=== PATIENT | male | born 1955 | race Native Hawaiian/Other Pacific Islander ===

== ENCOUNTER 2019-03-12 11:30 | Inpatient (IN) | payer MEDICAID, OTHER ==
[~2019-03-12] VITALS: Ht 185.4 cm; Wt 109.2 kg
[~2019-03-12 11:30] MED LIST: NOCURR
[2019-03-12 12:44] LABS: BASOPHILS % (AUTO) 0.6 % (0.0-2.0); EOSINOPHILS % (AUTO) 8.8 % (1.0-6.0); HEMATOCRIT 46.9 % (41-53); HEMOGLOBIN 15.7 g/dL (13.5-17.5); LYMPHOCYTES # (AUTO) 1.9 K/uL (1.0-4.8); LYMPHOCYTES % (AUTO) 31.5 % (22.0-44.0); MEAN CORPUSCULAR HEMOGLOBIN 31.6 pg (26.0-34.0); MEAN CORPUSCULAR HGB CONC 33.5 G/dL (31.0-37.0); MEAN CORPUSCULAR VOLUME 94 fL (80-100); MONOCYTES # (AUTO) 0.5 K/uL (0.1-1.0); MONOCYTES % (AUTO) 8.2 % (2.0-9.0); NEUTROPHILS % (AUTO) 50.9 % (40.0-70.0); PLATELET COUNT (AUTO) 314 K/uL (150-450); RED BLOOD CELL COUNT(AUTO) 4.97 MIL/uL (4.50-5.90); RED CELL DISTRIBUTION WIDTH 13.5 % (11.5-14.5)
[2019-03-12 12:59] LABS: ANION GAP 8 mmol/L (8-16); CALCIUM, TOTAL 8.9 mg/dL (8.8-10.5); CARBON DIOXIDE 26 mmol/L (22-29); CHLORIDE 105 mmol/L (98-107); GLOMERULAR FILTR. RATE CALC > 60 mL/min (>60); GLUCOSE,RANDOM 97 mg/dL (70-110); POTASSIUM 4.4 mmol/L (3.5-5.1); SODIUM SERUM 139 mmol/L (136-145); UREA NITROGEN, BLOOD 14 mg/dL (7-18)
[2019-03-12 13:05] LABS: ALANINE AMINOTRANSFERASE 24 U/L (12-78); ALBUMIN 3.7 g/dL (3.4-5.0); ALKALINE PHOSPHATASE 53 U/L (46-116); ASPARTATE AMINOTRANSFERASE 19 U/L (15-37); BILIRUBIN,TOTAL 0.5 mg/dL (0.1-1.0); TOTAL PROTEIN, SERUM 7.9 g/dL (6.4-8.2)
[2019-03-12] MEDS ORDERED: IOVERSOL 350 MG/ML 150 ML VIAL ONE (14:36)
[2019-03-12] MEDS ORDERED: IOVERSOL 320 MG/ML 100 ML VIAL ONE (14:44)
[2019-03-12] MEDS ORDERED: 0.9% SODIUM CHLORIDE 10 ML SYRINGE IVP PRN (16:00)
[2019-03-12] MEDS ORDERED: ACETAMINOPHEN 325 MG TABLET PO PRN ×2 (16:00→16:30)
[2019-03-12] MEDS ORDERED: ONDANSETRON HCL 4 MG/2 ML VIAL IVP PRN ×2 (16:00→16:30)
[2019-03-12] MEDS ORDERED: IOVERSOL 350 MG/ML 100 ML VIAL ONE (16:14)
[2019-03-12] MEDS ORDERED: MORPHINE SULFATE 2 MG/ML SYRINGE IVP PRN (16:30)
[2019-03-12] MEDS ORDERED: ZOLPIDEM TARTRATE 5 MG TABLET PO PRN (16:30)
[2019-03-12] MEDS ORDERED: HYDROCODONE/ACETAMINOPHEN 5-325 MG TABLET PO PRN (16:30)
[2019-03-12] MEDS ORDERED: MAGNESIUM HYDROXIDE SUSPENSION 30 ML UDCUP PO PRN (16:30)
[2019-03-12] MEDS ORDERED: BISACODYL 10 MG RECTAL RECTAL SUPPOSITORY PR PRN (16:30)
[2019-03-12 21:34] VITALS: BP 154/78
[2019-03-13 00:02] VITALS: BP 119/73
[2019-03-13] MEDS ORDERED: INFLUENZA VIRUS VACCINE QVS 2019-20 (3YR+)/PF 60 MCG/0.5 ML SYRINGE IM ONE (00:15)
[2019-03-13] MEDS: HEPARIN SODIUM,PORCINE 5,000 UNITS/ML VIAL SQ SCH ×3 (00:22→15:16)
[2019-03-13] MEDS: NITROGLYCERIN 2% (1 GM=INCH) PACKET TP SCH ×3 (00:22→15:17)
[2019-03-13] MEDS: DOCUSATE SODIUM 100 MG CAPSULE PO SCH ×2 (00:22→08:37)
[2019-03-13 04:37] VITALS: BP 100/70
[2019-03-13 05:43] LABS: AMPHET/METH SCREEN,URINE NEGATIVE (NEGATIVE); BARBITURATE SCREEN, URINE NEGATIVE (NEGATIVE); BENZODIAZEPINES SCREEN,URINE NEGATIVE (NEGATIVE); CANNABINOID SCREEN,URINE NEGATIVE (NEGATIVE); COCAINE SCREEN,URINE NEGATIVE (NEGATIVE); METHADONE SCREEN, URINE NEGATIVE (NEGATIVE); OPIATE SCREEN,URINE NEGATIVE (NEGATIVE)
[2019-03-13 05:46] LABS: PHENCYCLIDINE SCREEN,URINE NEGATIVE (NEGATIVE)
[2019-03-13 07:13] LABS: BASOPHILS % (AUTO) 0.6 % (0.0-2.0); EOSINOPHILS % (AUTO) 7.5 % (1.0-6.0); HEMATOCRIT 44.4 % (41-53); HEMOGLOBIN 15.1 g/dL (13.5-17.5); LYMPHOCYTES # (AUTO) 2.1 K/uL (1.0-4.8); LYMPHOCYTES % (AUTO) 29.2 % (22.0-44.0); MEAN CORPUSCULAR VOLUME 94 fL (80-100); MONOCYTES # (AUTO) 0.6 K/uL (0.1-1.0); NEUTROPHILS % (AUTO) 54.7 % (40.0-70.0); PLATELET COUNT (AUTO) 315 K/uL (150-450); RED BLOOD CELL COUNT(AUTO) 4.72 MIL/uL (4.50-5.90); RED CELL DISTRIBUTION WIDTH 13.3 % (11.5-14.5)
[2019-03-13 07:37] VITALS: BP 105/43
[2019-03-13 07:57] LABS: ANION GAP 7 mmol/L (8-16); CALCIUM, TOTAL 8.7 mg/dL (8.8-10.5); CARBON DIOXIDE 27 mmol/L (22-29); CHLORIDE 104 mmol/L (98-107); CHOLESTEROL 237 mg/dL (131-200); GLOMERULAR FILTR. RATE CALC > 60 mL/min (>60); GLUCOSE,RANDOM 98 mg/dL (70-110); HDL CHOLESTEROL 34 mg/dL (40-60); LDL CHOL (CALC.) 177 mg/dL (0-130); SODIUM SERUM 138 mmol/L (136-145); TRIGLYCERIDES 129 mg/dL (15-150); UREA NITROGEN, BLOOD 14 mg/dL (7-18)
[2019-03-13] MEDS ORDERED: ASPIRIN 81 MG CHEWABLE TABLET PO SCH (09:00)
[2019-03-13] MEDS ORDERED: PANTOPRAZOLE SODIUM 40 MG DR TABLET PO SCH (09:00)
[2019-03-13 11:25] VITALS: BP 128/70
[2019-03-13 15:11] VITALS: BP 114/58
== END 2019-03-13 16:30 | disposition home or self-care (01) | DRG 203 ==
LOC: EMS 11:32 → 5S 16:44
PROVIDERS: ADMIT Internal Medicine; ATTEND Internal Medicine
DX: M94.0 Chondrocostal junction syndrome [Tietze] (principal); J45.909 Unspecified asthma, uncomplicated; R55 Syncope and collapse; Z87.891 Personal history of nicotine dependence; Z23 Encounter for immunization
CPT/HCPCS: 70496; 71275; 80307; 90686; 93005; 93306; J1644

== ENCOUNTER 2019-06-03 11:26 | Emergency (ER) | payer OTHER ==
[~2019-06-03] VITALS: Ht 180.3 cm; Wt 104.5 kg
[2019-06-03 12:20] VITALS: BP 144/99
== END 2019-06-03 12:58 | disposition home or self-care (01) ==
LOC: EMS 11:27
DX: L30.9 Dermatitis, unspecified (principal); J45.909 Unspecified asthma, uncomplicated; Z87.891 Personal history of nicotine dependence

== ENCOUNTER 2019-11-09 11:39 | Emergency (ER) | payer OTHER ==
[~2019-11-09] VITALS: Ht 182.9 cm; Wt 100.0 kg
[2019-11-09 11:42] VITALS: BP 129/80
== END 2019-11-09 12:27 | disposition home or self-care (01) ==
LOC: EMS 11:43
DX: K08.89 Other specified disorders of teeth and supporting structures (principal); L30.9 Dermatitis, unspecified; J45.909 Unspecified asthma, uncomplicated; Z87.891 Personal history of nicotine dependence

== ENCOUNTER 2019-11-30 12:53 | Emergency (ER) | payer OTHER ==
[~2019-11-30] VITALS: Ht 182.9 cm; Wt 100.0 kg
[2019-11-30] MEDS ORDERED: MAGNESIUM CITRATE 300 ML ORAL SOLUTION PO ONE (14:30)
[2019-11-30] MEDS ORDERED: TraMADol HCL 50 MG TABLET PO ONE (14:30)
[2019-11-30 14:44] VITALS: BP 143/82
== END 2019-11-30 14:53 | disposition home or self-care (01) ==
LOC: EMS 12:58
DX: M13.862 Other specified arthritis, left knee (principal); M13.861 Other specified arthritis, right knee; R10.84 Generalized abdominal pain; J45.909 Unspecified asthma, uncomplicated; Z87.891 Personal history of nicotine dependence

== ENCOUNTER 2019-12-11 12:16 | Emergency (ER) | payer OTHER ==
[~2019-12-11] VITALS: Ht 175.3 cm; Wt 100.0 kg
[2019-12-11 12:18] VITALS: BP 143/82
== END 2019-12-11 12:57 | disposition home or self-care (01) ==
LOC: EMS 12:16
DX: L25.9 Unspecified contact dermatitis, unspecified cause (principal); Z87.891 Personal history of nicotine dependence
CPT/HCPCS: 99283; Z7502

== ENCOUNTER 2019-12-17 13:32 | Emergency (ER) | payer OTHER ==
[~2019-12-17] VITALS: Ht 182.9 cm; Wt 90.9 kg
[2019-12-17] MEDS ORDERED: NAPR-1193 PO (13:40)
[2019-12-17 13:42] VITALS: BP 128/69
[2019-12-17] MEDS ORDERED: NAPROXEN 250 MG TABLET PO ONE (14:00)
== END 2019-12-17 14:24 | disposition home or self-care (01) ==
LOC: EMS 13:36
DX: M13.862 Other specified arthritis, left knee (principal); M13.861 Other specified arthritis, right knee; J45.909 Unspecified asthma, uncomplicated; Z87.891 Personal history of nicotine dependence
CPT/HCPCS: Z7502; Z7610

== ENCOUNTER 2020-04-22 12:10 | Emergency (ER) | payer OTHER ==
[~2020-04-22] VITALS: Ht 177.8 cm; Wt 97.7 kg
[~2020-04-22 12:10] MED LIST changes: +NAPR-1193 PO; -NOCURR
[2020-04-22 14:27] VITALS: BP 142/76
== END 2020-04-22 14:34 | disposition home or self-care (01) ==
LOC: EMS 12:11
DX: L30.9 Dermatitis, unspecified (principal); J45.909 Unspecified asthma, uncomplicated; I20.9 Angina pectoris, unspecified

== ENCOUNTER 2020-06-21 07:14 | Emergency (ER) | payer OTHER ==
[~2020-06-21] VITALS: Ht 182.9 cm; Wt 90.9 kg
[2020-06-21] MEDS ORDERED: GuaiFENesin/D-METHORPHAN [SUGAR-FREE] 200-20MG/10 ML SYRUP UDCUP PO ONE (08:00)
[2020-06-21] MEDS ORDERED: ACETAMINOPHEN 500 MG TABLET PO ONE (08:00)
[2020-06-21 09:36] LABS: COVID AG,FIA SOURCE NASOPHARYNGEAL
[2020-06-21 10:09] LABS: INFLUENZA TYPE A NEGATIVE FOR TYPE A (NEGATIVE); INFLUENZA TYPE B NEGATIVE FOR TYPE B (NEGATIVE)
[2020-06-21 10:25] LABS: BASOPHILS % (AUTO) 0.6 % (0.0-2.0); EOSINOPHILS % (AUTO) 1.7 % (1.0-6.0); HEMATOCRIT 44.3 % (41-53); LYMPHOCYTES # (AUTO) 1.6 K/uL (1.0-4.8); LYMPHOCYTES % (AUTO) 14.8 % (22.0-44.0); MEAN CORPUSCULAR HEMOGLOBIN 31.5 pg (26.0-34.0); MEAN CORPUSCULAR HGB CONC 33.9 G/dL (31.0-37.0); MEAN CORPUSCULAR VOLUME 93 fL (80-100); MONOCYTES # (AUTO) 0.6 K/uL (0.1-1.0); MONOCYTES % (AUTO) 5.2 % (2.0-9.0); NEUTROPHILS # (AUTO) 8.4 K/uL (1.8-7.7); NEUTROPHILS % (AUTO) 77.7 % (40.0-70.0); PLATELET COUNT (AUTO) 284 K/uL (150-450); RED BLOOD CELL COUNT(AUTO) 4.77 MIL/uL (4.50-5.90); RED CELL DISTRIBUTION WIDTH 13.9 % (11.5-14.5)
[2020-06-21 10:36] LABS: ANION GAP 5 mmol/L (8-16); CALCIUM, TOTAL 8.8 mg/dL (8.8-10.5); CARBON DIOXIDE 28 mmol/L (22-29); CHLORIDE 103 mmol/L (98-107); CREATININE 1.11 mg/dL (0.60-1.30); GLOMERULAR FILTR. RATE CALC > 60 mL/min (>60); GLUCOSE,RANDOM 97 mg/dL (70-110); POTASSIUM 4.2 mmol/L (3.5-5.1); SODIUM SERUM 136 mmol/L (136-145); UREA NITROGEN, BLOOD 14 mg/dL (7-18)
[2020-06-21 10:48] LABS: ALANINE AMINOTRANSFERASE 34 U/L (12-78); ALBUMIN 3.7 g/dL (3.4-5.0); ALKALINE PHOSPHATASE 46 U/L (46-116); ASPARTATE AMINOTRANSFERASE 24 U/L (15-37); BILIRUBIN,TOTAL 0.6 mg/dL (0.1-1.0); TOTAL PROTEIN, SERUM 8.3 g/dL (6.4-8.2)
[2020-06-21 11:56] VITALS: BP 185/84
== END 2020-06-21 11:59 | disposition home or self-care (01) ==
LOC: EMS 07:14
DX: R07.89 Other chest pain (principal); J06.9 Acute upper respiratory infection, unspecified; J45.909 Unspecified asthma, uncomplicated; Z87.891 Personal history of nicotine dependence; Z79.899 Other long term (current) drug therapy; Z20.822 Contact with and (suspected) exposure to COVID-19
CPT/HCPCS: 87426; 87804; 93005; 99285; 36415-L1; 36415-TC; 71045-TC

== ENCOUNTER 2020-06-29 00:36 | Emergency (ER) | payer OTHER ==
[~2020-06-29] VITALS: Ht 182.9 cm; Wt 90.9 kg
[2020-06-29 01:57] VITALS: BP 151/81
[2020-06-29] MEDS ORDERED: ALBUTEROL SULFATE HFA 90 MCG/PUFF 8 GM INHALER IH ONE (03:15)
[2020-06-29 03:52] LABS: BASOPHILS % (AUTO) 0.3 % (0.0-2.0); EOSINOPHILS % (AUTO) 3.6 % (1.0-6.0); HEMATOCRIT 42.6 % (41-53); HEMOGLOBIN 14.3 g/dL (13.5-17.5); LYMPHOCYTES # (AUTO) 1.8 K/uL (1.0-4.8); MEAN CORPUSCULAR HEMOGLOBIN 31.2 pg (26.0-34.0); MEAN CORPUSCULAR HGB CONC 33.6 G/dL (31.0-37.0); MEAN CORPUSCULAR VOLUME 93 fL (80-100); MONOCYTES % (AUTO) 10.8 % (2.0-9.0); NEUTROPHILS # (AUTO) 6.4 K/uL (1.8-7.7); NEUTROPHILS % (AUTO) 66.3 % (40.0-70.0); PLATELET COUNT (AUTO) 336 K/uL (150-450); RED BLOOD CELL COUNT(AUTO) 4.57 MIL/uL (4.50-5.90); RED CELL DISTRIBUTION WIDTH 13.5 % (11.5-14.5)
[2020-06-29 04:14] LABS: CALCIUM, TOTAL 8.8 mg/dL (8.8-10.5); CREATININE 1.3 mg/dL (0.60-1.30); POTASSIUM 3.8 mmol/L (3.5-5.1)
[2020-06-29 04:17] LABS: ALBUMIN 3.4 g/dL (3.4-5.0); BILIRUBIN,TOTAL 0.5 mg/dL (0.1-1.0)
[2020-06-29] MEDS ORDERED: PredniSONE 20 MG TABLET PO ONE (04:30)
[2020-06-29] MEDS ORDERED: CefTRIAXone SODIUM 1 GM/VIAL IM ONE (04:45)
[2020-06-29] MEDS ORDERED: LIDOCAINE/PF 1% 2 ML VIAL IM ONE (04:45)
== END 2020-06-29 05:07 | disposition home or self-care (01) ==
LOC: EMS 00:40
DX: J44.1 Chronic obstructive pulmonary disease with (acute) exacerbation (principal); J18.9 Pneumonia, unspecified organism; Z87.891 Personal history of nicotine dependence
CPT/HCPCS: 36415; 71045; 80053; 85025; 94640; 96372; 99284; J0696; J3490; J7512; J3535

== ENCOUNTER 2020-08-13 15:05 | Emergency (ER) | payer OTHER ==
[~2020-08-13] VITALS: Ht 167.6 cm; Wt 100.0 kg
[2020-08-13] MEDS ORDERED: KETOROLAC TROMETHAMINE 30 MG/ML VIAL IM ONE (16:30)
[2020-08-13] MEDS ORDERED: CYCLOBENZAPRINE HCL 10 MG TABLET PO ONE (16:30)
[2020-08-13 18:30] VITALS: BP 136/70
== END 2020-08-13 18:59 | disposition home or self-care (01) ==
LOC: EMS 15:05
DX: M53.3 Sacrococcygeal disorders, not elsewhere classified (principal); M54.5 Low back pain; J45.909 Unspecified asthma, uncomplicated; Z87.891 Personal history of nicotine dependence
CPT/HCPCS: 72110; 96372; 99285; J1885; 99283

== ENCOUNTER 2020-10-13 13:05 | Emergency (ER) | payer OTHER ==
[~2020-10-13] VITALS: Ht 185.4 cm; Wt 97.7 kg
[2020-10-13] MEDS ORDERED: ASPIRIN 81 MG CHEWABLE TABLET PO ONE (14:15)
[2020-10-13 14:45] LABS: BASOPHILS % (AUTO) 0.7 % (0.0-2.0); EOSINOPHILS % (AUTO) 9.4 % (1.0-6.0); HEMATOCRIT 48.1 % (41-53); HEMOGLOBIN 15.9 g/dL (13.5-17.5); LYMPHOCYTES # (AUTO) 1.8 K/uL (1.0-4.8); LYMPHOCYTES % (AUTO) 27.5 % (22.0-44.0); MEAN CORPUSCULAR HEMOGLOBIN 30.7 pg (26.0-34.0); MEAN CORPUSCULAR HGB CONC 32.9 G/dL (31.0-37.0); MEAN CORPUSCULAR VOLUME 93 fL (80-100); MONOCYTES # (AUTO) 0.7 K/uL (0.1-1.0); MONOCYTES % (AUTO) 10.3 % (2.0-9.0); NEUTROPHILS # (AUTO) 3.4 K/uL (1.8-7.7); NEUTROPHILS % (AUTO) 52.1 % (40.0-70.0); PLATELET COUNT (AUTO) 281 K/uL (150-450); RED BLOOD CELL COUNT(AUTO) 5.16 MIL/uL (4.50-5.90); RED CELL DISTRIBUTION WIDTH 13.7 % (11.5-14.5)
[2020-10-13 14:50] LABS: ANION GAP 9 mmol/L (8-16); CALCIUM, TOTAL 8.4 mg/dL (8.8-10.5); CARBON DIOXIDE 26 mmol/L (22-29); CHLORIDE 104 mmol/L (98-107); CREATININE 1.06 mg/dL (0.60-1.30); GLOMERULAR FILTR. RATE CALC > 60 mL/min (>60); GLUCOSE,RANDOM 109 mg/dL (70-110); POTASSIUM 4.1 mmol/L (3.5-5.1); SODIUM SERUM 139 mmol/L (136-145); UREA NITROGEN, BLOOD 16 mg/dL (7-18)
[2020-10-13 15:15] VITALS: BP 152/85
[2020-10-13] MEDS ORDERED: ALBUTEROL SULFATE HFA 90 MCG/PUFF 8 GM INHALER IH ONE (15:15)
== END 2020-10-13 15:31 | disposition home or self-care (01) ==
LOC: EMS 13:20
DX: J45.909 Unspecified asthma, uncomplicated (principal); M25.561 Pain in right knee; M25.562 Pain in left knee; Z87.891 Personal history of nicotine dependence
CPT/HCPCS: 71045; 80048; 84484; 85025; 93005; 94640; 99285; J3535; 36415-L1; 36415-TC

== ENCOUNTER 2020-12-18 11:18 | Emergency (ER) | payer OTHER ==
[~2020-12-18] VITALS: Ht 188 cm; Wt 113.6 kg
[2020-12-18] MEDS ORDERED: ACETAMINOPHEN 500 MG TABLET PO ONE (13:00)
[2020-12-18 13:41] LABS: ANION GAP 6 mmol/L (8-16); CALCIUM, TOTAL 8.8 mg/dL (8.8-10.5); CARBON DIOXIDE 28 mmol/L (22-29); CHLORIDE 105 mmol/L (98-107); GLOMERULAR FILTR. RATE CALC > 60 mL/min (>60); GLUCOSE,RANDOM 84 mg/dL (70-110); POTASSIUM 4.1 mmol/L (3.5-5.1); SODIUM SERUM 139 mmol/L (136-145); UREA NITROGEN, BLOOD 19 mg/dL (7-18)
[2020-12-18 13:52] LABS: B-TYPE NATRIURETIC PEPTIDE 11 pg/mL (0-100)
[2020-12-18 14:05] LABS: ALANINE AMINOTRANSFERASE 29 U/L (12-78); ALBUMIN 3.5 g/dL (3.4-5.0); ALKALINE PHOSPHATASE 40 U/L (46-116); ASPARTATE AMINOTRANSFERASE 19 U/L (15-37); BILIRUBIN,TOTAL 0.5 mg/dL (0.1-1.0); CREATINE KINASE, TOTAL ONLY 200 U/L (39-308); TOTAL PROTEIN, SERUM 7.6 g/dL (6.4-8.2)
[2020-12-18 14:38] LABS: BASOPHILS % (AUTO) 0.5 % (0.0-2.0); EOSINOPHILS % (AUTO) 6.6 % (1.0-6.0); HEMATOCRIT 46.2 % (41-53); HEMOGLOBIN 15.6 g/dL (13.5-17.5); LYMPHOCYTES # (AUTO) 2.1 K/uL (1.0-4.8); LYMPHOCYTES % (AUTO) 30.9 % (22.0-44.0); MEAN CORPUSCULAR HEMOGLOBIN 31.3 pg (26.0-34.0); MEAN CORPUSCULAR HGB CONC 33.6 G/dL (31.0-37.0); MEAN CORPUSCULAR VOLUME 93 fL (80-100); MONOCYTES # (AUTO) 0.8 K/uL (0.1-1.0); MONOCYTES % (AUTO) 12.1 % (2.0-9.0); NEUTROPHILS # (AUTO) 3.3 K/uL (1.8-7.7); NEUTROPHILS % (AUTO) 49.9 % (40.0-70.0); PLATELET COUNT (AUTO) 278 K/uL (150-450); RED BLOOD CELL COUNT(AUTO) 4.97 MIL/uL (4.50-5.90); RED CELL DISTRIBUTION WIDTH 13.7 % (11.5-14.5)
[2020-12-18 15:15] VITALS: BP 139/86
== END 2020-12-18 15:22 | disposition home or self-care (01) ==
LOC: EMS 11:23
DX: B34.9 Viral infection, unspecified (principal); Z20.822 Contact with and (suspected) exposure to COVID-19; J45.909 Unspecified asthma, uncomplicated; Z87.891 Personal history of nicotine dependence
CPT/HCPCS: 71045; 80053; 82550; 83880; 84484; 85025; 93005; 99285; U0003; 36415-L1; 36415-TC

== ENCOUNTER 2021-04-15 10:22 | Emergency (ER) | payer OTHER ==
[~2021-04-15] VITALS: Ht 188 cm; Wt 100.0 kg
[2021-04-15 12:13] VITALS: BP 159/70
== END 2021-04-15 13:30 | disposition home or self-care (01) ==
LOC: EMS 10:25
DX: L30.9 Dermatitis, unspecified (principal); J45.909 Unspecified asthma, uncomplicated; Z87.891 Personal history of nicotine dependence
CPT/HCPCS: 99283; Z7502

== ENCOUNTER 2021-04-25 11:24 | Emergency (ER) | payer OTHER ==
[~2021-04-25] VITALS: Ht 182.9 cm; Wt 100.0 kg
[2021-04-25 11:37] VITALS: BP 150/89
== END 2021-04-25 13:00 | disposition home or self-care (01) ==
LOC: EMS 11:24
DX: K08.89 Other specified disorders of teeth and supporting structures (principal); J45.909 Unspecified asthma, uncomplicated
CPT/HCPCS: 99283

== ENCOUNTER 2021-11-24 11:06 | Emergency (ER) | payer OTHER ==
[~2021-11-24] VITALS: Ht 185.4 cm; Wt 118.2 kg
[2021-11-24 14:39] LABS: BASOPHILS % (AUTO) 0.4 % (0.0-2.0); EOSINOPHILS % (AUTO) 8.1 % (1.0-6.0); HEMATOCRIT 45.7 % (41-53); HEMOGLOBIN 15.5 g/dL (13.5-17.5); LYMPHOCYTES % (AUTO) 26.9 % (22.0-44.0); MEAN CORPUSCULAR HEMOGLOBIN 31.4 pg (26.0-34.0); MEAN CORPUSCULAR VOLUME 92 fL (80-100); MONOCYTES # (AUTO) 0.7 K/uL (0.1-1.0); MONOCYTES % (AUTO) 9.5 % (2.0-9.0); NEUTROPHILS % (AUTO) 55.1 % (40.0-70.0); PLATELET COUNT (AUTO) 288 K/uL (150-450); RED BLOOD CELL COUNT(AUTO) 4.94 MIL/uL (4.50-5.90); RED CELL DISTRIBUTION WIDTH 13.7 % (11.5-14.5)
[2021-11-24 14:49] LABS: ANION GAP 4 mmol/L (8-16); CALCIUM, TOTAL 8.8 mg/dL (8.8-10.5); CARBON DIOXIDE 32 mmol/L (22-29); CHLORIDE 102 mmol/L (98-107); CREATININE 0.97 mg/dL (0.60-1.30); GLUCOSE,RANDOM 91 mg/dL (70-110); POTASSIUM 4.1 mmol/L (3.5-5.1); SODIUM SERUM 138 mmol/L (136-145); UREA NITROGEN, BLOOD 12 mg/dL (7-18)
[2021-11-24 14:50] LABS: GLOMERULAR FILTR. RATE CALC > 60 mL/min (>60)
[2021-11-24 14:55] LABS: ALANINE AMINOTRANSFERASE 26 U/L (12-78); ALBUMIN 3.6 g/dL (3.4-5.0); ALKALINE PHOSPHATASE 41 U/L (46-116); ASPARTATE AMINOTRANSFERASE 16 U/L (15-37); BILIRUBIN,TOTAL 0.5 mg/dL (0.1-1.0); TOTAL PROTEIN, SERUM 7.8 g/dL (6.4-8.2)
[2021-11-24 14:56] LABS: B-TYPE NATRIURETIC PEPTIDE < 5 pg/mL (0-100)
[2021-11-24 16:25] VITALS: BP 111/78
== END 2021-11-24 16:28 | disposition home or self-care (01) ==
LOC: EMS 11:06
DX: R07.89 Other chest pain (principal); J45.909 Unspecified asthma, uncomplicated; I20.8 Other forms of angina pectoris
CPT/HCPCS: 71045; 80053; 83880; 84484; 85025; 93005; 99285; 36415-L1; 36415-TC

== ENCOUNTER 2021-12-09 09:22 | Emergency (ER) | payer OTHER ==
[~2021-12-09] VITALS: Ht 175.3 cm; Wt 127.3 kg
[2021-12-09] MEDS ORDERED: HYDROCODONE/ACETAMINOPHEN 5-325 MG TABLET PO ONE (10:45)
[2021-12-09] MEDS ORDERED: KETOROLAC TROMETHAMINE 60 MG/2 ML VIAL IM ONE (10:45)
[2021-12-09 10:49] LABS: BASOPHILS % (AUTO) 0.3 % (0.0-2.0); EOSINOPHILS % (AUTO) 4.5 % (1.0-6.0); HEMATOCRIT 44.4 % (41-53); LYMPHOCYTES # (AUTO) 1.7 K/uL (1.0-4.8); LYMPHOCYTES % (AUTO) 15.7 % (22.0-44.0); MEAN CORPUSCULAR HEMOGLOBIN 31.1 pg (26.0-34.0); MEAN CORPUSCULAR HGB CONC 33.7 G/dL (31.0-37.0); MEAN CORPUSCULAR VOLUME 93 fL (80-100); MONOCYTES # (AUTO) 0.8 K/uL (0.1-1.0); MONOCYTES % (AUTO) 7.3 % (2.0-9.0); NEUTROPHILS % (AUTO) 72.2 % (40.0-70.0); PLATELET COUNT (AUTO) 285 K/uL (150-450); RED CELL DISTRIBUTION WIDTH 13.8 % (11.5-14.5)
[2021-12-09 11:05] LABS: ANION GAP 6 mmol/L (8-16); CALCIUM, TOTAL 8.8 mg/dL (8.8-10.5); CARBON DIOXIDE 29 mmol/L (22-29); CHLORIDE 101 mmol/L (98-107); CREATININE 1.09 mg/dL (0.60-1.30); GLOMERULAR FILTR. RATE CALC > 60 mL/min (>60); GLUCOSE,RANDOM 108 mg/dL (70-110); POTASSIUM 4.1 mmol/L (3.5-5.1); SODIUM SERUM 136 mmol/L (136-145); UREA NITROGEN, BLOOD 8 mg/dL (7-18)
[2021-12-09 11:14] LABS: URIC ACID 8.1 mg/dL (2.6-7.2)
[2021-12-09 12:09] VITALS: BP 144/90
[2021-12-09] MEDS ORDERED: IBUP-1554 PO (13:57)
[2021-12-09] MEDS ORDERED: HYDR-4723 PO (13:57)
[2021-12-09] MEDS ORDERED: COLC0.6T73 PO (13:57)
[2021-12-09] MEDS ORDERED: CEPH-558 PO (13:57)
== END 2021-12-09 14:41 | disposition home or self-care (01) ==
LOC: EMS 09:23
DX: M79.671 Pain in right foot (principal); J45.909 Unspecified asthma, uncomplicated
CPT/HCPCS: 99284; 80048; 84550; 85025; 36415; 73660; 96372; J1885

== ENCOUNTER 2022-01-01 10:36 | Emergency (ER) | payer OTHER ==
[~2022-01-01] VITALS: Ht 177.8 cm; Wt 125.0 kg
[~2022-01-01 10:36] MED LIST changes: +CEPH-558 PO; +COLC0.6T73 PO; +HYDR-4723 PO; +IBUP-1554 PO; -NAPR-1193 PO
[2022-01-01] MEDS ORDERED: IBUPROFEN 400 MG TABLET PO ONE (12:00)
[2022-01-01] MEDS ORDERED: NAPR-1025 PO (12:51)
[2022-01-01 12:55] VITALS: BP 111/60
== END 2022-01-01 12:58 | disposition home or self-care (01) ==
LOC: EMS 10:36
DX: M79.641 Pain in right hand (principal); F10.20 Alcohol dependence, uncomplicated; J45.909 Unspecified asthma, uncomplicated; I20.9 Angina pectoris, unspecified
CPT/HCPCS: 99283

== ENCOUNTER 2022-03-14 09:59 | Emergency (ER) | payer OTHER ==
[~2022-03-14] VITALS: Ht 193 cm; Wt 127.0 kg
[~2022-03-14 09:59] MED LIST changes: +NAPR-1025 PO
[2022-03-14] MEDS ORDERED: MORPHINE SULFATE 2 MG/ML SYRINGE IVP ONE (12:30)
[2022-03-14] MEDS ORDERED: SODIUM CHLORIDE 0.9% 1,000 ML IV ONE (12:30)
[2022-03-14 12:46] LABS: BASOPHILS % (AUTO) 0.4 % (0.0-2.0); HEMATOCRIT 47.3 % (41-53); HEMOGLOBIN 15.6 g/dL (13.5-17.5); LYMPHOCYTES # (AUTO) 1.9 K/uL (1.0-4.8); LYMPHOCYTES % (AUTO) 25.3 % (22.0-44.0); MEAN CORPUSCULAR HEMOGLOBIN 31.3 pg (26.0-34.0); MEAN CORPUSCULAR HGB CONC 33.1 G/dL (31.0-37.0); MEAN CORPUSCULAR VOLUME 95 fL (80-100); MONOCYTES # (AUTO) 0.7 K/uL (0.1-1.0); NEUTROPHILS # (AUTO) 4.4 K/uL (1.8-7.7); NEUTROPHILS % (AUTO) 59.3 % (40.0-70.0); PLATELET COUNT (AUTO) 264 K/uL (150-450); RED CELL DISTRIBUTION WIDTH 13.9 % (11.5-14.5)
[2022-03-14 12:56] LABS: ANION GAP 2 mmol/L (8-16); CALCIUM, TOTAL 8.6 mg/dL (8.8-10.5); CARBON DIOXIDE 33 mmol/L (22-29); CHLORIDE 101 mmol/L (98-107); CREATININE 1.05 mg/dL (0.60-1.30); GLUCOSE,RANDOM 97 mg/dL (70-110); POTASSIUM 4.3 mmol/L (3.5-5.1); SODIUM SERUM 136 mmol/L (136-145); UREA NITROGEN, BLOOD 9 mg/dL (7-18)
[2022-03-14 12:57] LABS: GLOMERULAR FILTR. RATE CALC > 60 mL/min (>60)
[2022-03-14 13:02] LABS: ALANINE AMINOTRANSFERASE 23 U/L (12-78); ALBUMIN 3.7 g/dL (3.4-5.0); ALKALINE PHOSPHATASE 43 U/L (46-116); ASPARTATE AMINOTRANSFERASE 21 U/L (15-37); BILIRUBIN,TOTAL 0.7 mg/dL (0.1-1.0); LIPASE 114 U/L (73-393); TOTAL PROTEIN, SERUM 7.9 g/dL (6.4-8.2)
[2022-03-14 13:05] LABS: APPEARANCE,URINE CLEAR (CLEAR); BILIRUBIN,URINE NEGATIVE (NEGATIVE); GLUCOSE, URINE (UA) NEGATIVE (NEGATIVE); KETONES,URINE NEGATIVE (NEGATIVE); LEUKOCYTE ESTERASE ,URINE NEGATIVE (NEGATIVE); NITRATE,URINE NEGATIVE (NEGATIVE); OCCULT BLOOD,URINE NEGATIVE (NEGATIVE); PROTEIN,URINE NEGATIVE (NEGATIVE); UROBILINOGEN,URINE <=1.0 mg/dL (<=1.0)
[2022-03-14 13:10] VITALS: BP 161/98
[2022-03-14] MEDS ORDERED: MAGN-169 PO (13:43)
== END 2022-03-14 14:08 | disposition home or self-care (01) ==
LOC: EMS 09:59
DX: R10.84 Generalized abdominal pain (principal); R14.0 Abdominal distension (gaseous); K59.00 Constipation, unspecified; F10.20 Alcohol dependence, uncomplicated
CPT/HCPCS: 99285; 74176; 96374; 71045; 96361; 80053; 81003; 83690; 84484; 85025; 36415; 93005; J2270; J7030

== ENCOUNTER 2022-04-06 09:57 | Emergency (ER) | payer OTHER ==
[~2022-04-06] VITALS: Ht 182.9 cm; Wt 127.3 kg
[~2022-04-06 09:57] MED LIST changes: -IBUP-1554 PO; +MAGN-169 PO
[2022-04-06] MEDS ORDERED: METF-1211 PO (10:16)
[2022-04-06] MEDS ORDERED: COLC0.6T73 PO (11:39)
[2022-04-06] MEDS ORDERED: TRI115O TP (11:41)
[2022-04-06] MEDS ORDERED: CLOT15CR29 TP (11:45)
[2022-04-06 12:00] VITALS: BP 156/91
== END 2022-04-06 12:19 | disposition home or self-care (01) ==
LOC: EMS 10:21
DX: L30.4 Erythema intertrigo (principal); M10.9 Gout, unspecified; Z76.0 Encounter for issue of repeat prescription
CPT/HCPCS: 99281; Z7502

== ENCOUNTER 2022-04-19 10:27 | Emergency (ER) | payer OTHER ==
[~2022-04-19] VITALS: Ht 185.4 cm; Wt 104.5 kg
[~2022-04-19 10:27] MED LIST changes: +CLOT15CR29 TP; +METF-1211 PO; +TRI115O TP
[2022-04-19 12:38] VITALS: BP 147/75
[2022-04-19] MEDS ORDERED: FLUC150T PO (12:52)
== END 2022-04-19 13:00 | disposition home or self-care (01) ==
LOC: EMS 10:29
DX: B37.9 Candidiasis, unspecified (principal); Z79.899 Other long term (current) drug therapy; Z79.84 Long term (current) use of oral hypoglycemic drugs
CPT/HCPCS: 99283

== ENCOUNTER 2022-05-18 11:42 | Emergency (ER) | payer MEDICARE, OTHER ==
[~2022-05-18] VITALS: Ht 182.9 cm; Wt 127.3 kg
[~2022-05-18 11:42] MED LIST changes: +FLUC150T PO
[2022-05-18 12:51] LABS: COVID AG,FIA SOURCE NASOPHARYNGEAL
[2022-05-18 13:22] LABS: BASOPHILS % (AUTO) 0.6 % (0.0-2.0); EOSINOPHILS % (AUTO) 5.7 % (1.0-6.0); HEMATOCRIT 48.4 % (41-53); LYMPHOCYTES # (AUTO) 1.8 K/uL (1.0-4.8); LYMPHOCYTES % (AUTO) 21.9 % (22.0-44.0); MEAN CORPUSCULAR HEMOGLOBIN 31.2 pg (26.0-34.0); MEAN CORPUSCULAR HGB CONC 33.1 G/dL (31.0-37.0); MEAN CORPUSCULAR VOLUME 94 fL (80-100); MONOCYTES # (AUTO) 0.7 K/uL (0.1-1.0); MONOCYTES % (AUTO) 8.9 % (2.0-9.0); NEUTROPHILS # (AUTO) 5.2 K/uL (1.8-7.7); NEUTROPHILS % (AUTO) 62.9 % (40.0-70.0); PLATELET COUNT (AUTO) 307 K/uL (150-450); RED BLOOD CELL COUNT(AUTO) 5.12 MIL/uL (4.50-5.90); RED CELL DISTRIBUTION WIDTH 13.6 % (11.5-14.5)
[2022-05-18 13:35] LABS: ANION GAP 7 mmol/L (8-16); CALCIUM, TOTAL 8.7 mg/dL (8.8-10.5); CARBON DIOXIDE 29 mmol/L (22-29); CHLORIDE 102 mmol/L (98-107); CREATININE 1.14 mg/dL (0.60-1.30); GLOMERULAR FILTR. RATE CALC > 60 mL/min (>60); GLUCOSE,RANDOM 128 mg/dL (70-110); POTASSIUM 3.6 mmol/L (3.5-5.1); SODIUM SERUM 138 mmol/L (136-145); UREA NITROGEN, BLOOD 12 mg/dL (7-18)
[2022-05-18 13:36] LABS: INFLUENZA TYPE A NEGATIVE FOR TYPE A (NEGATIVE); INFLUENZA TYPE B NEGATIVE FOR TYPE B (NEGATIVE)
[2022-05-18 13:41] LABS: ALANINE AMINOTRANSFERASE 23 U/L (12-78); ALBUMIN 3.7 g/dL (3.4-5.0); ALKALINE PHOSPHATASE 50 U/L (46-116); ASPARTATE AMINOTRANSFERASE 20 U/L (15-37); BILIRUBIN,TOTAL 0.5 mg/dL (0.1-1.0); TOTAL PROTEIN, SERUM 8.2 g/dL (6.4-8.2)
[2022-05-18] MEDS ORDERED: BENZ-70 PO (14:01)
[2022-05-18 14:38] VITALS: BP 120/72
== END 2022-05-18 14:39 | disposition home or self-care (01) ==
LOC: EMS 11:50
DX: R06.9 Unspecified abnormalities of breathing (principal); Z20.822 Contact with and (suspected) exposure to COVID-19
CPT/HCPCS: 71045; 80053; 82962; 83880; 84484; 85025; 87804; 93005; 99285; 36415-L1; 36415-TC

== ENCOUNTER 2022-06-05 16:55 | Emergency (ER) | payer MEDICARE, OTHER ==
[~2022-06-05] VITALS: Ht 175.3 cm; Wt 127.3 kg
[~2022-06-05 16:55] MED LIST changes: +BENZ-70 PO; -CEPH-558 PO; -CLOT15CR29 TP; -FLUC150T PO; -TRI115O TP
[2022-06-05 17:28] LABS: BASOPHILS % (AUTO) 0.7 % (0.0-2.0); EOSINOPHILS % (AUTO) 5.2 % (1.0-6.0); HEMATOCRIT 45.1 % (41-53); HEMOGLOBIN 15.1 g/dL (13.5-17.5); LYMPHOCYTES # (AUTO) 1.9 K/uL (1.0-4.8); LYMPHOCYTES % (AUTO) 21.9 % (22.0-44.0); MEAN CORPUSCULAR HEMOGLOBIN 31.1 pg (26.0-34.0); MEAN CORPUSCULAR HGB CONC 33.4 G/dL (31.0-37.0); MEAN CORPUSCULAR VOLUME 93 fL (80-100); MONOCYTES # (AUTO) 0.8 K/uL (0.1-1.0); MONOCYTES % (AUTO) 8.7 % (2.0-9.0); NEUTROPHILS # (AUTO) 5.6 K/uL (1.8-7.7); NEUTROPHILS % (AUTO) 63.5 % (40.0-70.0); PLATELET COUNT (AUTO) 307 K/uL (150-450); RED BLOOD CELL COUNT(AUTO) 4.84 MIL/uL (4.50-5.90); RED CELL DISTRIBUTION WIDTH 13.6 % (11.5-14.5)
[2022-06-05 17:37] LABS: ANION GAP 10 mmol/L (8-16); CALCIUM, TOTAL 8.5 mg/dL (8.8-10.5); CARBON DIOXIDE 27 mmol/L (22-29); CHLORIDE 100 mmol/L (98-107); CREATININE 1.12 mg/dL (0.60-1.30); GLOMERULAR FILTR. RATE CALC > 60 mL/min (>60); GLUCOSE,RANDOM 91 mg/dL (70-110); POTASSIUM 3.8 mmol/L (3.5-5.1); SODIUM SERUM 137 mmol/L (136-145); UREA NITROGEN, BLOOD 12 mg/dL (7-18)
[2022-06-05 17:44] LABS: B-TYPE NATRIURETIC PEPTIDE 9 pg/mL (0-100)
[2022-06-05 17:45] LABS: PROTHROMBIN TIME 10.8 SEC (9.4-11.6)
[2022-06-05 18:03] LABS: ALANINE AMINOTRANSFERASE 25 U/L (12-78); ALBUMIN 3.9 g/dL (3.4-5.0); ALKALINE PHOSPHATASE 45 U/L (46-116); ASPARTATE AMINOTRANSFERASE 27 U/L (15-37); BILIRUBIN,TOTAL 0.5 mg/dL (0.1-1.0); CREATINE KINASE, TOTAL ONLY 592 U/L (39-308); PHOSPHORUS 3.7 mg/dL (2.5-4.9); TOTAL PROTEIN, SERUM 8.4 g/dL (6.4-8.2)
[2022-06-05 19:05] LABS: COVID AG,FIA SOURCE NASOPHARYNGEAL
[2022-06-05 19:12] LABS: APPEARANCE,URINE CLEAR (CLEAR); BILIRUBIN,URINE NEGATIVE (NEGATIVE); GLUCOSE, URINE (UA) NEGATIVE (NEGATIVE); KETONES,URINE NEGATIVE (NEGATIVE); LEUKOCYTE ESTERASE ,URINE NEGATIVE (NEGATIVE); NITRATE,URINE NEGATIVE (NEGATIVE); OCCULT BLOOD,URINE NEGATIVE (NEGATIVE); PH,URINE 6.5 (5.0-8.0); PROTEIN,URINE NEGATIVE (NEGATIVE); SPECIFIC GRAVITIY, URINE 1.006 (1.003-1.030); UROBILINOGEN,URINE <=1.0 mg/dL (<=1.0)
[2022-06-05 19:37] LABS: INFLUENZA TYPE A NEGATIVE FOR TYPE A (NEGATIVE); INFLUENZA TYPE B NEGATIVE FOR TYPE B (NEGATIVE)
[2022-06-05 19:58] VITALS: BP 141/86
== END 2022-06-05 20:01 | disposition home or self-care (01) ==
LOC: EMS 17:03
DX: R07.2 Precordial pain (principal); R05.9 Cough, unspecified; E11.9 Type 2 diabetes mellitus without complications; Z87.891 Personal history of nicotine dependence; Z20.822 Contact with and (suspected) exposure to COVID-19
CPT/HCPCS: 71045; 80053; 81003; 82550; 82962; 83735; 83880; 84100; 84484; 85025; 85610; 85730; 87804; 93005; 99285; 36415-L1; 36415-TC

== ENCOUNTER 2022-08-11 09:16 | Emergency (ER) | payer MEDICARE, OTHER ==
[~2022-08-11] VITALS: Ht 182.9 cm; Wt 127.3 kg
[~2022-08-11 09:16] MED LIST changes: +BENZ-227 PO; -BENZ-70 PO
[2022-08-11 09:17] VITALS: BP 137/75
[2022-08-11 09:39] LABS: COVID AG,FIA SOURCE NASOPHARYNGEAL
[2022-08-11 10:12] LABS: INFLUENZA TYPE A NEGATIVE FOR TYPE A (NEGATIVE); INFLUENZA TYPE B NEGATIVE FOR TYPE B (NEGATIVE)
[2022-08-11] MEDS ORDERED: BENZONATATE 100 MG CAPSULE PO ONE (11:00)
[2022-08-11] MEDS ORDERED: BENZ-227 PO (11:08)
== END 2022-08-11 11:58 | disposition home or self-care (01) ==
LOC: EMS 09:19
DX: R05.9 Cough, unspecified (principal); E11.9 Type 2 diabetes mellitus without complications; Z87.891 Personal history of nicotine dependence; Z20.822 Contact with and (suspected) exposure to COVID-19
CPT/HCPCS: 71046; 82962; 87804; 99284

== ENCOUNTER 2022-10-03 07:19 | Emergency (ER) | payer MEDICARE, OTHER ==
[~2022-10-03] VITALS: Ht 180.3 cm; Wt 104.5 kg
[~2022-10-03 07:19] MED LIST changes: -COLC0.6T73 PO; -HYDR-4723 PO; -MAGN-169 PO; -METF-1211 PO; -NAPR-1025 PO
[2022-10-03] MEDS ORDERED: KETOROLAC TROMETHAMINE 60 MG/2 ML VIAL IM ONE (08:00)
[2022-10-03] MEDS ORDERED: OxyCODONE HCL/ACETAMINOPHEN 5-325 MG TABLET PO ONE (08:00)
[2022-10-03] MEDS ORDERED: PENICILLIN V POTASSIUM 500 MG TABLET PO ONE (08:00)
[2022-10-03 08:10] VITALS: BP 138/82
== END 2022-10-03 08:45 | disposition home or self-care (01) ==
LOC: EMS 07:21
DX: K02.9 Dental caries, unspecified (principal)
CPT/HCPCS: 99283; 96372; J1885

== ENCOUNTER 2023-08-10 09:45 | Emergency (ER) | payer MEDICARE, OTHER ==
[~2023-08-10] VITALS: Ht 182.9 cm; Wt 109.1 kg
[2023-08-10 09:48] VITALS: TEMP 98.4
[2023-08-10] MEDS ORDERED: AMOX1TAB16 PO (12:11)
[2023-08-10] MEDS ORDERED: DIPH-1243 PO (12:11)
[2023-08-10 12:31] VITALS: BP 136/69; PULSE 78; RESP 18
== END 2023-08-10 12:39 | disposition home or self-care (01) ==
LOC: EMS 09:53
DX: L03.213 Periorbital cellulitis (principal); Z87.891 Personal history of nicotine dependence
CPT/HCPCS: 99283

== ENCOUNTER 2023-08-25 10:36 | Emergency (ER) | payer MEDICARE ==
[~2023-08-25] VITALS: Ht 177.8 cm; Wt 115.9 kg
[~2023-08-25 10:36] MED LIST changes: +AMOX1TAB16 PO; +DIPH-1243 PO
[2023-08-25] MEDS ORDERED: LOSA1TAB37 PO (10:38)
[2023-08-25 10:39] VITALS: TEMP 98.4
[2023-08-25 13:33] VITALS: BP 128/79; PULSE 71; RESP 16
[2023-08-25] MEDS ORDERED: AMOX1TAB16 PO (15:24)
[2023-08-25] MEDS ORDERED: SULF-261 PO (15:24)
[2023-08-25] MEDS ORDERED: DIPH50 PO (15:25)
== END 2023-08-25 16:20 | disposition home or self-care (01) ==
LOC: EMS 10:44
DX: L03.213 Periorbital cellulitis (principal); L30.9 Dermatitis, unspecified; I10 Essential (primary) hypertension; Z87.891 Personal history of nicotine dependence
CPT/HCPCS: 99283; Z7502

== ENCOUNTER 2023-11-04 17:59 | Emergency (ER) | payer MEDICARE, MEDICAID ==
[~2023-11-04] VITALS: Ht 188 cm; Wt 118.2 kg
[~2023-11-04 17:59] MED LIST changes: +AMOX-457 PO; -AMOX1TAB16 PO; -BENZ-227 PO; -DIPH-1243 PO; +DIPH50 PO; +LOSA1TAB37 PO; +SULF-261 PO
[2023-11-04 18:03] VITALS: TEMP 98.3
[2023-11-04] MEDS ORDERED: ACET-3385 PO (18:07)
[2023-11-04] MEDS ORDERED: IBUP-1554 PO (19:25)
[2023-11-04] MEDS ORDERED: TRAM50TA5 PO (19:25)
[2023-11-04] MEDS: TraMADol HCL 50 MG TABLET PO ONE (19:34)
[2023-11-04] MEDS: IBUPROFEN 600 MG TABLET PO ONE (19:34)
[2023-11-04 19:45] VITALS: BP 175/80; PULSE 77; RESP 16
== END 2023-11-04 19:48 | disposition home or self-care (01) ==
LOC: EMS 18:03
DX: K08.89 Other specified disorders of teeth and supporting structures (principal); I10 Essential (primary) hypertension
CPT/HCPCS: 99283

== ENCOUNTER → 2024-02-14 | Emergency (ER) | payer MEDICARE, OTHER ==
[~2024-02-14] VITALS: Ht 182.9 cm; Wt 120.5 kg
[~2024-02-14] MED LIST changes: +ACET-3385 PO; +HYDR-4062 PO; +IBUP-1554 PO; -SULF-261 PO; +TRAM50TA5 PO
[2024-02-14] MEDS: AMOX TR/POT CLAV 875 MG/125 MG TABLET PO ONE (11:35)
[2024-02-14] MEDS: HYDROCODONE/ACETAMINOPHEN 5-325 MG TABLET PO ONE (11:35)
[2024-02-14 11:53] VITALS: BP 112/69; PULSE 77; RESP 20; TEMP 97.5; O2SAT 100
== END | disposition still patient (30) ==
LOC: EMS 10:07
DX: K04.7 Periapical abscess without sinus (principal); K02.9 Dental caries, unspecified; I10 Essential (primary) hypertension; Z87.891 Personal history of nicotine dependence
CPT/HCPCS: 99283

== ENCOUNTER 2024-06-06 10:27 | Emergency (ER) | payer MEDICARE, OTHER ==
[~2024-06-06] VITALS: Ht 182.9 cm; Wt 113.6 kg
[~2024-06-06 10:27] MED LIST changes: -ACET-3385 PO; -AMOX-457 PO; +AZIT-164 PO; -DIPH50 PO; +FLUT1BLS5 IH; -HYDR-4062 PO; -IBUP-1554 PO; +PRED10TA3 PO; +TAMS0.4C94 PO; -TRAM50TA5 PO
[2024-06-06 10:46] VITALS: BP 118/70; PULSE 82; RESP 18; TEMP 98.5; O2SAT 97
[2024-06-06] MEDS: PredniSONE 20 MG TABLET PO ONE (10:59)
[2024-06-06] MEDS: DiphenhydrAMINE HCL 50 MG/ML VIAL IM ONE (10:59)
[2024-06-06] MEDS ORDERED: HYDR30CR3 TP (11:38)
[2024-06-06] MEDS ORDERED: DIPH50CA37 PO (11:38)
[2024-06-06] MEDS ORDERED: PRED-554 PO (11:38)
== END 2024-06-06 13:06 | disposition home or self-care (01) ==
LOC: EMS 10:35
DX: T78.40XA Allergy, unspecified, initial encounter (principal); I10 Essential (primary) hypertension; Z79.52 Long term (current) use of systemic steroids; X58.XXXA Exposure to other specified factors, initial encounter
CPT/HCPCS: 99283; 96372; J1200; J7512

== ENCOUNTER 2024-06-11 15:33 | Emergency (ER) | payer MEDICARE, OTHER ==
[~2024-06-11] VITALS: Ht 188 cm; Wt 124.5 kg
[~2024-06-11 15:33] MED LIST changes: -AZIT-164 PO; +DIPH50CA37 PO; -FLUT1BLS5 IH; +HYDR30CR3 TP; -LOSA1TAB37 PO; +PRED-554 PO; -PRED10TA3 PO; -TAMS0.4C94 PO
[2024-06-11 15:46] VITALS: BP 127/58; PULSE 71; RESP 25; TEMP 98.9; O2SAT 99
[2024-06-11] MEDS ORDERED: LOSA1TAB37 PO (15:54)
[2024-06-11 17:08] LABS: BASOPHILS % (AUTO) 0.5 % (0.0-2.0); EOSINOPHILS % (AUTO) 4.9 % (1.0-6.0); HEMATOCRIT 45.5 % (41-53); HEMOGLOBIN 15.1 g/dL (13.5-17.5); LYMPHOCYTES # (AUTO) 2.4 K/uL (1.0-4.8); LYMPHOCYTES % (AUTO) 27.4 % (22.0-44.0); MEAN CORPUSCULAR HEMOGLOBIN 31.6 pg (26.0-34.0); MEAN CORPUSCULAR HGB CONC 33.2 G/dL (31.0-37.0); MEAN CORPUSCULAR VOLUME 95 fL (80-100); MONOCYTES # (AUTO) 0.8 K/uL (0.1-1.0); MONOCYTES % (AUTO) 9.1 % (2.0-9.0); NEUTROPHILS # (AUTO) 5.2 K/uL (1.8-7.7); NEUTROPHILS % (AUTO) 58.1 % (40.0-70.0); PLATELET COUNT (AUTO) 314 K/uL (150-450); RED BLOOD CELL COUNT(AUTO) 4.78 MIL/uL (4.50-5.90); RED CELL DISTRIBUTION WIDTH 13.8 % (11.5-14.5); WHITE BLOOD COUNT (AUTO) 8.9 K/uL (4.5-11.0)
[2024-06-11 17:10] LABS: ANION GAP 7 mmol/L (8-16); CALCIUM, TOTAL 8.4 mg/dL (8.8-10.5); CARBON DIOXIDE 33 mmol/L (22-29); CHLORIDE 90 mmol/L (98-107); CREATININE 1.13 mg/dL (0.60-1.30); GLOMERULAR FILTR. RATE CALC > 60 mL/min (>60); GLUCOSE,RANDOM 87 mg/dL (70-110); POTASSIUM 3.3 mmol/L (3.5-5.1); SODIUM SERUM 130 mmol/L (136-145); UREA NITROGEN, BLOOD 14 mg/dL (7-18)
[2024-06-11 17:18] LABS: TROPONIN I-HIGH SENSITIVITY 7 ng/L (<76)
[2024-06-11 17:24] LABS: B-TYPE NATRIURETIC PEPTIDE < 5 pg/mL (0-100)
[2024-06-11 17:35] LABS: CREATINE KINASE, TOTAL ONLY 259 U/L (39-308)
[2024-06-11] MEDS ORDERED: GUAIFDM PO (18:39)
[2024-06-11] MEDS ORDERED: ACET-66 PO (18:39)
[2024-06-11] MEDS: GuaiFENesin/D-METHORPHAN [SUGAR-FREE] 200-20MG/10 ML SYRUP UDCUP PO ONE (19:07)
[2024-06-11] MEDS: ACETAMINOPHEN 500 MG TABLET PO ONE (19:07)
[2024-06-11] MEDS: POTASSIUM CHLORIDE 20 MEQ ER TABLET PO ONE (19:07)
== END 2024-06-11 19:15 | disposition home or self-care (01) ==
LOC: EMS 15:39
DX: J40 Bronchitis, not specified as acute or chronic (principal); J06.9 Acute upper respiratory infection, unspecified; I10 Essential (primary) hypertension; E87.6 Hypokalemia
CPT/HCPCS: 80048; 82550; 83880; 84484; 85025; 93005; 99284

== ENCOUNTER 2024-07-16 10:08 | Emergency (ER) | payer MEDICARE, OTHER ==
[~2024-07-16] VITALS: Ht 182.9 cm; Wt 113.0 kg
[~2024-07-16 10:08] MED LIST changes: +ACET-66 PO; -DIPH50CA37 PO; +GUAIFDM PO; -HYDR30CR3 TP; +LOSA1TAB37 PO; -PRED-554 PO
[2024-07-16 10:23] VITALS: TEMP 98.3
[2024-07-16 12:00] LABS: BASOPHILS % (AUTO) 0.8 % (0.0-2.0); EOSINOPHILS % (AUTO) 4.5 % (1.0-6.0); HEMATOCRIT 44.7 % (41-53); HEMOGLOBIN 14.9 g/dL (13.5-17.5); LYMPHOCYTES # (AUTO) 1.7 K/uL (1.0-4.8); LYMPHOCYTES % (AUTO) 28.5 % (22.0-44.0); MEAN CORPUSCULAR HGB CONC 33.3 G/dL (31.0-37.0); MEAN CORPUSCULAR VOLUME 96 fL (80-100); MONOCYTES # (AUTO) 0.5 K/uL (0.1-1.0); MONOCYTES % (AUTO) 8.2 % (2.0-9.0); NEUTROPHILS # (AUTO) 3.5 K/uL (1.8-7.7); PLATELET COUNT (AUTO) 286 K/uL (150-450); RED BLOOD CELL COUNT(AUTO) 4.65 MIL/uL (4.50-5.90); RED CELL DISTRIBUTION WIDTH 13.9 % (11.5-14.5); WHITE BLOOD COUNT (AUTO) 6.1 K/uL (4.5-11.0)
[2024-07-16 12:09] LABS: ANION GAP 4 mmol/L (8-16); CALCIUM, TOTAL 8.5 mg/dL (8.8-10.5); CARBON DIOXIDE 32 mmol/L (22-29); CHLORIDE 104 mmol/L (98-107); CREATININE 1.01 mg/dL (0.60-1.30); GLOMERULAR FILTR. RATE CALC > 60 mL/min (>60); GLUCOSE,RANDOM 95 mg/dL (70-110); POTASSIUM 3.7 mmol/L (3.5-5.1); SODIUM SERUM 140 mmol/L (136-145); UREA NITROGEN, BLOOD 14 mg/dL (7-18)
[2024-07-16] MEDS: KETOROLAC TROMETHAMINE 30 MG/ML VIAL IM ONE (12:47)
[2024-07-16] MEDS: LIDOCAINE 5% TRANSDERMAL PATCH TD ONE (12:48)
[2024-07-16 13:01] VITALS: BP 133/74; PULSE 65; RESP 18; O2SAT 99
[2024-07-16] MEDS ORDERED: IBUP-1492 PO (13:45)
[2024-07-16] MEDS ORDERED: LIDO700A15 TP (13:55)
== END 2024-07-16 13:58 | disposition home or self-care (01) ==
LOC: EMS 10:22
DX: M54.50 Low back pain, unspecified (principal); I10 Essential (primary) hypertension
CPT/HCPCS: 99284; 80048; 85025; 36415; 72100; 96372; J1885

== ENCOUNTER 2024-08-14 10:26 | Emergency (ER) | payer MEDICARE, OTHER ==
[~2024-08-14] VITALS: Ht 167.6 cm; Wt 100.0 kg
[~2024-08-14 10:26] MED LIST changes: +IBUP-1492 PO; +LIDO700A15 TP
[2024-08-14 11:15] LABS: BASOPHILS % (AUTO) 0.8 % (0.0-2.0); EOSINOPHILS % (AUTO) 6.6 % (1.0-6.0); HEMATOCRIT 47.2 % (41-53); HEMOGLOBIN 15.5 g/dL (13.5-17.5); LYMPHOCYTES # (AUTO) 1.7 K/uL (1.0-4.8); LYMPHOCYTES % (AUTO) 22.9 % (22.0-44.0); MEAN CORPUSCULAR HEMOGLOBIN 31.7 pg (26.0-34.0); MEAN CORPUSCULAR HGB CONC 32.9 G/dL (31.0-37.0); MEAN CORPUSCULAR VOLUME 96 fL (80-100); MONOCYTES # (AUTO) 0.6 K/uL (0.1-1.0); MONOCYTES % (AUTO) 8.6 % (2.0-9.0); NEUTROPHILS # (AUTO) 4.6 K/uL (1.8-7.7); NEUTROPHILS % (AUTO) 61.1 % (40.0-70.0); PLATELET COUNT (AUTO) 281 K/uL (150-450); RED CELL DISTRIBUTION WIDTH 13.5 % (11.5-14.5); WHITE BLOOD COUNT (AUTO) 7.5 K/uL (4.5-11.0)
[2024-08-14 11:16] LABS: COVID AG,FIA SOURCE NASAL SWAB
[2024-08-14 11:24] LABS: ANION GAP 7 mmol/L (8-16); CALCIUM, TOTAL 9.1 mg/dL (8.8-10.5); CARBON DIOXIDE 33 mmol/L (22-29); CHLORIDE 102 mmol/L (98-107); CREATININE 1.02 mg/dL (0.60-1.30); GLOMERULAR FILTR. RATE CALC > 60 mL/min (>60); GLUCOSE,RANDOM 98 mg/dL (70-110); POTASSIUM 4.3 mmol/L (3.5-5.1); SODIUM SERUM 142 mmol/L (136-145); UREA NITROGEN, BLOOD 8 mg/dL (7-18)
[2024-08-14 11:34] LABS: TROPONIN I-HIGH SENSITIVITY 9 ng/L (<76)
[2024-08-14 11:54] LABS: INFLUENZA TYPE A NEGATIVE FOR TYPE A (NEGATIVE); INFLUENZA TYPE B NEGATIVE FOR TYPE B (NEGATIVE); SARS-COV2 (COVID) ANTIGEN,FIA Negative (Negative)
[2024-08-14] MEDS ORDERED: BENZ-227 PO (13:40)
[2024-08-14 13:43] VITALS: BP 138/78; PULSE 66; RESP 18; TEMP 97.8; O2SAT 98
== END 2024-08-14 13:54 | disposition home or self-care (01) ==
LOC: EMS 10:26
DX: J06.9 Acute upper respiratory infection, unspecified (principal); I10 Essential (primary) hypertension; Z71.6 Tobacco abuse counseling; Z20.822 Contact with and (suspected) exposure to COVID-19
CPT/HCPCS: 80048; 84484; 85025; 87804; 93005; 99284

== ENCOUNTER 2024-08-30 09:52 | Emergency (ER) | payer MEDICARE, OTHER ==
[~2024-08-30] VITALS: Ht 188 cm; Wt 109.1 kg
[~2024-08-30 09:52] MED LIST changes: +BENZ-227 PO
[2024-08-30 10:11] LABS: COVID AG,FIA SOURCE NASAL SWAB
[2024-08-30 10:30] LABS: INFLUENZA TYPE A NEGATIVE FOR TYPE A (NEGATIVE); INFLUENZA TYPE B NEGATIVE FOR TYPE B (NEGATIVE); SARS-COV2 (COVID) ANTIGEN,FIA Negative (Negative)
[2024-08-30] MEDS: ALBUTEROL SULFATE HFA 90 MCG/PUFF 8 GM INHALER IH ONE (12:16)
[2024-08-30 12:17] VITALS: PULSE 68; RESP 24; O2SAT 95
[2024-08-30 12:21] LABS: BASOPHILS % (AUTO) 0.6 % (0.0-2.0); EOSINOPHILS % (AUTO) 5.3 % (1.0-6.0); HEMATOCRIT 46.1 % (41-53); HEMOGLOBIN 15.1 g/dL (13.5-17.5); LYMPHOCYTES # (AUTO) 1.7 K/uL (1.0-4.8); LYMPHOCYTES % (AUTO) 16.8 % (22.0-44.0); MEAN CORPUSCULAR HEMOGLOBIN 31.2 pg (26.0-34.0); MEAN CORPUSCULAR HGB CONC 32.8 G/dL (31.0-37.0); MEAN CORPUSCULAR VOLUME 95 fL (80-100); MONOCYTES # (AUTO) 0.9 K/uL (0.1-1.0); MONOCYTES % (AUTO) 9.1 % (2.0-9.0); NEUTROPHILS # (AUTO) 6.7 K/uL (1.8-7.7); NEUTROPHILS % (AUTO) 68.2 % (40.0-70.0); PLATELET COUNT (AUTO) 293 K/uL (150-450); RED BLOOD CELL COUNT(AUTO) 4.85 MIL/uL (4.50-5.90); RED CELL DISTRIBUTION WIDTH 13.8 % (11.5-14.5); WHITE BLOOD COUNT (AUTO) 9.9 K/uL (4.5-11.0)
[2024-08-30 12:26] LABS: ANION GAP 3 mmol/L (8-16); CALCIUM, TOTAL 8.9 mg/dL (8.8-10.5); CARBON DIOXIDE 31 mmol/L (22-29); CHLORIDE 105 mmol/L (98-107); CREATININE 1.03 mg/dL (0.60-1.30); GLOMERULAR FILTR. RATE CALC > 60 mL/min (>60); GLUCOSE,RANDOM 95 mg/dL (70-110); SODIUM SERUM 139 mmol/L (136-145); UREA NITROGEN, BLOOD 12 mg/dL (7-18)
[2024-08-30 12:48] LABS: B-TYPE NATRIURETIC PEPTIDE 16 pg/mL (0-100)
[2024-08-30 15:20] VITALS: TEMP 97.5
[2024-08-30] MEDS ORDERED: AZIT250T9 PO (15:21)
[2024-08-30 15:34] VITALS: BP 132/72; PULSE 71; RESP 24; O2SAT 95
== END 2024-08-30 15:34 | disposition home or self-care (01) ==
LOC: EMS 09:54
DX: J42 Unspecified chronic bronchitis (principal); J32.9 Chronic sinusitis, unspecified; I10 Essential (primary) hypertension; R68.83 Chills (without fever); Z20.822 Contact with and (suspected) exposure to COVID-19
CPT/HCPCS: 99285; 71045; 87426; 80048; 83880; 85025; 87804; 36415; 94640; J3535

== ENCOUNTER 2024-12-04 13:21 | Emergency (ER) | payer MEDICARE, OTHER ==
[~2024-12-04] VITALS: Ht 185.4 cm; Wt 97.7 kg
[~2024-12-04 13:21] MED LIST changes: -ACET-66 PO; +AZIT-167 PO; -BENZ-227 PO; -GUAIFDM PO; -IBUP-1492 PO; -LIDO700A15 TP; -LOSA1TAB37 PO
[2024-12-04 13:38] VITALS: TEMP 97.9
[2024-12-04 14:12] LABS: PLATELET COUNT (AUTO) 261 K/uL (150-450); RED BLOOD CELL COUNT(AUTO) 4.87 MIL/uL (4.50-5.90); RED CELL DISTRIBUTION WIDTH 14.2 % (11.5-14.5); WHITE BLOOD COUNT (AUTO) 7.8 K/uL (4.5-11.0)
[2024-12-04 14:19] LABS: CALCIUM, TOTAL 8.8 mg/dL (8.8-10.5); CREATININE 1.14 mg/dL (0.60-1.30); GLOMERULAR FILTR. RATE CALC > 60 mL/min (>60); GLUCOSE,RANDOM 93 mg/dL (70-110); SODIUM SERUM 140 mmol/L (136-145); UREA NITROGEN, BLOOD 13 mg/dL (7-18)
[2024-12-04 14:28] LABS: TROPONIN I-HIGH SENSITIVITY 5 ng/L (<76)
[2024-12-04 14:36] LABS: CREATINE KINASE, TOTAL ONLY 205 U/L (39-308)
[2024-12-04 15:00] VITALS: BP 142/72; PULSE 83; RESP 18; O2SAT 96
== END 2024-12-04 15:51 | disposition home or self-care (01) ==
LOC: EMS 13:33
DX: R07.89 Other chest pain (principal); R10.84 Generalized abdominal pain; I10 Essential (primary) hypertension; Z87.891 Personal history of nicotine dependence; Z79.899 Other long term (current) drug therapy
CPT/HCPCS: 71045; 80048; 82550; 83880; 84484; 85025; 85610; 85730; 93005; 99285; 36415-L1; 36415-TC

== ENCOUNTER 2025-02-06 09:59 | Emergency (ER) | payer MEDICARE, OTHER ==
[~2025-02-06] VITALS: Ht 188 cm; Wt 97.7 kg
[~2025-02-06 09:59] MED LIST changes: +ASPI-1450 PO; +ATOR20TA65 PO; -AZIT-167 PO; +CARV3 PO
[2025-02-06 10:04] VITALS: BP 124/57; PULSE 74; RESP 30; TEMP 97.3; O2SAT 95
[2025-02-06 10:47] LABS: PLATELET COUNT (AUTO) 249 K/uL (150-450); RED BLOOD CELL COUNT(AUTO) 4.57 MIL/uL (4.50-5.90); RED CELL DISTRIBUTION WIDTH 13.6 % (11.5-14.5); WHITE BLOOD COUNT (AUTO) 5.8 K/uL (4.5-11.0)
[2025-02-06 10:54] LABS: CALCIUM, TOTAL 8.3 mg/dL (8.8-10.5); CREATININE 0.94 mg/dL (0.60-1.30); GLOMERULAR FILTR. RATE CALC > 60 mL/min (>60); GLUCOSE,RANDOM 102 mg/dL (70-110); SODIUM SERUM 138 mmol/L (136-145); UREA NITROGEN, BLOOD 11 mg/dL (7-18)
[2025-02-06 11:03] LABS: TROPONIN I-HIGH SENSITIVITY 9 ng/L (<76)
[2025-02-06] MEDS ORDERED: ASPI-1450 PO (14:02)
[2025-02-06] MEDS ORDERED: CLOP75TA83 PO (14:02)
== END 2025-02-06 14:19 | disposition home or self-care (01) ==
LOC: EMS 10:00
DX: G47.30 Sleep apnea, unspecified (principal); R06.09 Other forms of dyspnea; I10 Essential (primary) hypertension; Z87.891 Personal history of nicotine dependence; Z79.82 Long term (current) use of aspirin; Z79.899 Other long term (current) drug therapy
CPT/HCPCS: 71045; 80048; 83880; 84484; 85025; 93005; 99285; 36415-L1; 36415-TC